=== PATIENT | male | born 1955 | race Hispanic/Latino ===

== ENCOUNTER 2017-11-14 13:48 | Inpatient (IN) | payer OTHER ==
[2017-11-14 13:59] VITALS: BMI 23.7
[2017-11-14] MEDS ORDERED: Sodium Chloride 0.9% 1,000 ML IV ONE (14:35)
[2017-11-14] MEDS ORDERED: Sodium Chloride 0.9% 1,000 ML ONE (14:45)
[2017-11-14 14:59] LABS: BASO % 0.4 % (0.0-2.0); EOS # 0.1 K/uL (0.0-0.7); EOS % 1.3 % (0.0-4.0); HEMOGLOBIN 13.7 g/dL (12.0-18.0); LYMPH # 0.7 K/uL (1.0-4.3); LYMPH % 9.9 % (20.0-40.0); MEAN CELL VOLUME 89.8 fL (80.0-94.0); MEAN CORPUSCULAR HGB CONC 34.5 g/dL (33.0-37.0); MEAN PLATELET VOLUME 7.9 fL (7.2-11.7); MONO # 0.4 K/uL (0.0-0.8); NEUT # 5.6 K/uL (1.8-7.0); NEUT % 82.4 % (50.0-75.0); PLATELET COUNT 279 K/uL (130-400); RBC 4.42 Mil/uL (4.40-5.90); RED CELL DISTRIBUTION WIDTH 14.2 % (11.5-14.5); WHITE BLOOD COUNT 6.7 K/uL (4.8-10.8)
[2017-11-14 15:10] LABS: INR 0.9; PROTHROMBIN TIME 10.5 SECONDS (9.7-12.2)
[2017-11-14 15:37] LABS: ALB/GLOB RATIO 1.1 (1.0-2.1); ALBUMIN 3.9 g/dL (3.5-5.0)
[2017-11-14 15:39] LABS: ALT/SGPT 33 U/L (21-72); AST/SGOT 28 U/L (17-59); BLOOD UREA NITROGEN 20 mg/dL (9-20); CALCIUM 9.2 mg/dl (8.6-10.4); GFR AFRICAN-AMERICAN > 60; GFR NON-AFRICAN AMERICAN > 60; LIPASE 26 U/L (23-300)
[2017-11-14 15:45] LABS: EOSINOPHIL 1 % (0-4); LYMPHOCYTE 11 % (20-40); MONOCYTE 8 % (0-10); NEUTROPHIL 80 % (50-75); PLATELET ESTIMATE NORMAL (NORMAL); TOTAL CELLS COUNTED 100
--- NOTE | 2017-11-14 15:57 | C.PDOC ---
History Of Present Illness Pt states that he had a headache this morning so he took Aspirin for it. He then started vomiting coffee grounds. Time Seen by Provider: 11/14/17 14:26 Chief Complaint (Nursing): GI Problem History Per: Patient Onset/Duration Of Symptoms: Sudden Onset (this afternoon) Current Symptoms Are (Timing): Still Present Number Of Bleeding Episodes: Multiple: (4) Amount of Blood Loss: Medium Severity: Moderate Quality Of Discomfort: Unable To Describe Associated Symptoms: Vomiting, Coffee Ground material Modifying Factors: Other Indicated Below Currently Taking: Aspirin Additional History Per: Prior Records Past Medical History Reviewed: Historical Data, Nursing Documentation, Vital Signs Vital Signs: Last Vital Signs Temp 98.2 F 11/14/17 13:59 Pulse 77 11/14/17 14:47 Resp 14 11/14/17 14:47 BP 146/77 11/14/17 14:47 Pulse Ox 97 11/14/17 15:57 - Medical History PMH: Diabetes, Gastritis, Hepatitis (C), HTN, Hypercholesterolemia Surgical History: No Surg Hx - [facility] Procedures DX ULTRASOUND-HEART (03/04/13) OTHER ESOPHAGOSCOPY (03/04/13) Family History: States: Unknown Family Hx - Social History Hx Tobacco Use: Yes Hx Alcohol Use: No Hx Substance Use: Yes (heroin on methadone) - Immunization History Hx Tetanus Toxoid Vaccination: No Hx Influenza Vaccination: No Hx Pneumococcal Vaccination: No Review Of Systems Except As Marked, All Systems Reviewed And Found Negative. Constitutional: Negative for: Fever Respiratory: Negative for: Shortness of Breath Gastrointestinal: Negative for: Abdominal Pain, Melena Skin: Negative for: Rash Neurological: Negative for: Weakness, Numbness Physical Exam - Physical Exam Appears: No Acute Distress Skin: Normal Color, Warm, Dry, Rash (Psoriasis) Head: Atraumatic Eye(s): bilateral: PERRL, EOMI Neck: Normal ROM, Supple Cardiovascular: Rhythm Regular Respiratory: Normal Breath Sounds, No Accessory Muscle Use Gastrointestinal/Abdominal: Soft, No Tenderness Rectal: Heme Negative, Other (No stool in rectal vault, no blood either.) Extremity: Normal ROM Neurological/Psych: Oriented x3, Normal Motor, Normal Sensation ED Course And Treatment - Laboratory Results Result Diagrams: 11/14/17 14:43 11/14/17 14:43 O2 Sat by Pulse Oximetry: 97 Pulse Ox Interpretation: Normal Progress Note: Pt also vomited coffee ground material in the ED. Progress - Interventions Interventions:: Observation, Intravenous fluid - Medications Administered Intravenous: Antiemetic, Other (PPI) - Data Reviewed Data Reviewed: Lab, Old records - Continuity of Care Discussed patient case with:: Patient, ED Nurse, On-call PMD-pt unassigned - Patient Plan Patient Plan: Admission Disposition Counseled Patient/Family Regarding: Studies Performed, Diagnosis - Disposition Disposition: HOSPITALIZED Disposition Time: 15:58 Condition: FAIR - Clinical Impression Clinical Impression: Upper GI bleeding
[2017-11-14] MEDS ORDERED: Glucagon Recombinant 1 mg Inj IM PRN (21:14)
[2017-11-14] MEDS ORDERED: Dextrose 50% SYRINGE Inj (50 ml) IV PRN (21:14)
[2017-11-14] MEDS ORDERED: Dextrose 50% SYRINGE Inj (50 ml) ONE (21:21)
[2017-11-14] MEDS: (Novolin R) Insulin Human Regular 100 units/ml vial SC SCH (22:20)
[2017-11-14] MEDS: Dextrose 5%/0.45% NS 1,000 ML IV SCH (22:21)
[2017-11-14 23:34] LABS: MEAN CELL VOLUME 90.3 fL (80.0-94.0); MEAN CORPUSCULAR HEMOGLOBIN 31.3 pg (27.0-31.0); MEAN CORPUSCULAR HGB CONC 34.6 g/dL (33.0-37.0); MEAN PLATELET VOLUME 7.7 fL (7.2-11.7); RBC 3.85 Mil/uL (4.40-5.90); RED CELL DISTRIBUTION WIDTH 14.2 % (11.5-14.5); WHITE BLOOD COUNT 5.7 K/uL (4.8-10.8)
[2017-11-15] MEDS: Dextrose 5%/0.45% NS 1,000 ML IV SCH ×2 (06:25→14:55)
[2017-11-15] MEDS: (Novolin R) Insulin Human Regular 100 units/ml vial SC SCH ×2 (07:34→11:30)
[2017-11-15 08:05] LABS: HEMOGLOBIN 13.1 g/dL (12.0-18.0); MEAN CELL VOLUME 90.4 fL (80.0-94.0); MEAN CORPUSCULAR HGB CONC 34.3 g/dL (33.0-37.0); MEAN PLATELET VOLUME 7.9 fL (7.2-11.7); RBC 4.24 Mil/uL (4.40-5.90); RED CELL DISTRIBUTION WIDTH 14.4 % (11.5-14.5); WHITE BLOOD COUNT 5.3 K/uL (4.8-10.8)
[2017-11-15] MEDS ORDERED: Lactated Ringer's 1,000 ML IV ONE (09:05)
[2017-11-15] MEDS ORDERED: Propofol 10 mg/ml Inj (20 ML) ONE (09:14)
[2017-11-15] MEDS ORDERED: Methadone 40 mg Tab PO SCH (10:00)
--- NOTE | 2017-11-15 12:30 | CP.PCM.HP ---
History of Present Illness - History of Present Illness History of Present Illness: Pt states that he had a headache this morning so he took Aspirin for it. He then started vomiting coffee grounds. Present on Admission - Present on Admission Any Indicators Present on Admission: Yes Review of Systems - Review of Systems Systems not reviewed;Unavailable: Acuity of Condition - Constitutional Constitutional: Malaise, Weakness - EENT Eyes: absent: As Per HPI, Blind Spots, Blurred Vision, Change in Vision, Decreased Night Vision, Diplopia, Discharge, Dry Eye, Exophthalmos, Floaters, Irritation, Itchy Eyes, Loss of Peripheral Vision, Pain, Photophobia, Requires Corrective Lenses, Sees Flashes, Spots in Vision, Tunnel Vision, Other Visual Disturbances, Loss of Vision, Other Nose/Mouth/Throat: absent: As Per HPI, Epistaxis, Nasal Congestion, Nasal Discharge, Nasal Obstruction, Nasal Trauma, Nose Pain, Post Nasal Drip, Sinus Pain, Sinus Pressure, Bleeding Gums, Change in Voice, Dental Pain, Dry Mouth, Dysphagia, Halitosis, Hoarsness, Lip Swelling, Mouth Lesions, Mouth Pain, Odynophagia, Sore Throat, Throat Swelling, Tongue Swelling, Facial Pain, Neck Pain, Neck Mass, Other - Cardiovascular Cardiovascular: absent: As Per HPI, Acrocyanosis, Chest Pain, Chest Pain at Rest , Chest Pain with Activity, Claudication, Diaphoresis, Dyspnea, Dyspnea on Exertion, Edema, Irregular Heart Rhythm, Pain Radiating to Arm/Neck/Jaw, Leg Edema, Leg Ulcers, Lightheadedness, Orthopnea, Palpitations, Paroxysmal Nocturnal Dyspnea, Pedal Edema, Radiating Pain, Rapid Heart Rate, Slow Heart Rate, Syncope, Other - Gastrointestinal Gastrointestinal: Abdominal Pain - Genitourinary Genitourinary: absent: As Per HPI, Change in Urinary Stream, Difficulty Urinating, Dysuria, Flank Pain, Hematuria, Pyuria, Nocturia, Urinary Incontinence, Urinary Frequency, Urinary Hesitance, Urinary Urgency, Voiding Freq/Small Amts, Freq UTI, Hx Renal/Bladder Calculi, Hx /Renal Surgery, Bladder Distension, Other Past Patient History - Past Medical History & Family History Past Medical History?: Yes - Past Social History Smoking Status: Heavy Smoker > 10 Cigarettes Daily - CARDIAC Hx Cardiac Disorders: Yes Hx Hypercholesterolemia: Yes Hx Hypertension: Yes - PULMONARY Hx Respiratory Disorders: No - NEUROLOGICAL Hx Neurological Disorder: No - HEENT Hx HEENT Problems: No - RENAL Hx Chronic Kidney Disease: No - ENDOCRINE/METABOLIC Hx Endocrine Disorders: Yes Hx Diabetes Mellitus Type 2: Yes - HEMATOLOGICAL/ONCOLOGICAL Hx Blood Disorders: No - INTEGUMENTARY Hx Dermatological Problems: Yes Hx Psoriasis: Yes - MUSCULOSKELETAL/RHEUMATOLOGICAL Hx Musculoskeletal Disorders: No Hx Falls: No - GASTROINTESTINAL Hx Gastrointestinal Disorders: Yes Hx Gastritis: Yes - GENITOURINARY/GYNECOLOGICAL Hx Genitourinary Disorders: No - PSYCHIATRIC Hx Psychophysiologic Disorder: Yes Hx Substance Use: Yes (heroin/methadone) - SURGICAL HISTORY Hx Surgeries: No - ANESTHESIA Hx Anesthesia: No Hx Anesthesia Reactions: No Hx Malignant Hyperthermia: No Meds Home Medications: Home Medication List Medication Instructions Recorded Confirmed Type Omeprazole 40 mg PO DAILY #30 capsule. 11/15/17 Rx Allergies/Adverse Reactions: Allergies Allergy/AdvReac Type Severity Reaction Status Date / Time No Known Allergies Allergy Verified 11/14/17 13:58 Physical Exam - Constitutional Appears: Toxic, No Acute Distress - Head Exam Head Exam: ATRAUMATIC, NORMAL INSPECTION, NORMOCEPHALIC - Eye Exam Eye Exam: EOMI, Normal appearance, PERRL Pupil Exam: NORMAL ACCOMODATION, PERRL - Neck Exam Neck exam: Positive for: Normal Inspection - Respiratory Exam Respiratory Exam: Clear to Auscultation Bilateral, NORMAL BREATHING PATTERN - Cardiovascular Exam Cardiovascular Exam: REGULAR RHYTHM - GI/Abdominal Exam GI & Abdominal Exam: Normal Bowel Sounds, Tenderness - Neurological Exam Neurological exam: Alert, CN II-XII Intact, Normal Gait, Oriented x3, Reflexes Normal - Psychiatric Exam Psychiatric exam: Anxious - Skin Skin Exam: Dry, Intact, Normal Color, Warm Results - Vital Signs Recent Vital Signs: Last Vital Signs Temp 97.6 F 11/15/17 09:25 Pulse 70 11/15/17 11:11 Resp 12 11/15/17 09:55 BP 136/78 11/15/17 11:11 Pulse Ox 99 11/15/17 09:55 - Labs Result Diagrams: 11/15/17 07:59 11/14/17 14:43 Labs: Laboratory Results - last 24 hr 11/14/17 11/14/17 11/14/17 14:43 14:43 14:43 WBC 6.7 RBC 4.42 Hgb 13.7 Hct 39.7 MCV 89.8 MCH 31.0 MCHC 34.5 RDW 14.2 Plt Count 279 MPV 7.9 Neut % (Auto) 82.4 H Lymph % (Auto) 9.9 L [place] % (Auto) 6.0 Eos % (Auto) 1.3 Baso % (Auto) 0.4 Neut # (Auto) 5.6 Lymph # (Auto) 0.7 L [place] # (Auto) 0.4 Eos # (Auto) 0.1 Baso # (Auto) 0.0 Neutrophils % (Manual) 80 H Lymphocytes % (Manual) 11 L Monocytes % (Manual) 8 Eosinophils % (Manual) 1 Platelet Estimate Normal PT 10.5 INR 0.9 APTT 38 H Sodium 141 Potassium 4.0 Chloride 98 Carbon Dioxide 29 Anion Gap 18 BUN 20 Creatinine 0.9 Est GFR ( Amer) > 60 Est GFR (Non-Af Amer) > 60 POC Glucose (mg/dL) Random Glucose 142 H Calcium 9.2 Total Bilirubin 0.7 AST 28 ALT 33 Alkaline Phosphatase 70 Total Protein 7.5 Albumin 3.9 Globulin 3.5 Albumin/Globulin Ratio 1.1 Lipase 26 Stool Occult Blood Blood Type Antibody Screen Antibody Identification Antigen Identification 11/14/17 11/14/17 11/14/17 14:43 15:14 21:10 WBC RBC Hgb Hct MCV MCH MCHC RDW Plt Count MPV Neut % (Auto) Lymph % (Auto) [place] % (Auto) Eos % (Auto) Baso % (Auto) Neut # (Auto) Lymph # (Auto) [place] # (Auto) Eos # (Auto) Baso # (Auto) Neutrophils % (Manual) Lymphocytes % (Manual) Monocytes % (Manual) Eosinophils % (Manual) Platelet Estimate PT INR APTT Sodium Potassium Chloride Carbon Dioxide Anion Gap BUN Creatinine Est GFR ( Amer) Est GFR (Non-Af Amer) POC Glucose (mg/dL) 68 Random Glucose Calcium Total Bilirubin AST ALT Alkaline Phosphatase Total Protein Albumin Globulin Albumin/Globulin Ratio Lipase Stool Occult Blood Negative Blood Type A POSITIVE Antibody Screen Positive Antibody Identification Anti E Antigen Identification E Antigen - NEGATIVE 11/14/17 11/14/17 11/14/17 21:12 21:48 23:31 WBC 5.7 RBC 3.85 L Hgb 12.0 Hct 34.7 L MCV 90.3 MCH 31.3 H MCHC 34.6 RDW 14.2 Plt Count 236 MPV 7.7 Neut % (Auto) Lymph % (Auto) [place] % (Auto) Eos % (Auto) Baso % (Auto) Neut # (Auto) Lymph # (Auto) [place] # (Auto) Eos # (Auto) Baso # (Auto) Neutrophils % (Manual) Lymphocytes % (Manual) Monocytes % (Manual) Eosinophils % (Manual) Platelet Estimate PT INR APTT Sodium Potassium Chloride Carbon Dioxide Anion Gap BUN Creatinine Est GFR ( Amer) Est GFR (Non-Af Amer) POC Glucose (mg/dL) 69 128 H Random Glucose Calcium Total Bilirubin AST ALT Alkaline Phosphatase Total Protein Albumin Globulin Albumin/Globulin Ratio Lipase Stool Occult Blood Blood Type Antibody Screen Antibody Identification Antigen Identification 11/15/17 11/15/17 11/15/17 02:20 05:42 07:28 WBC RBC Hgb Hct MCV MCH MCHC RDW Plt Count MPV Neut % (Auto) Lymph % (Auto) [place] % (Auto) Eos % (Auto) Baso % (Auto) Neut # (Auto) Lymph # (Auto) [place] # (Auto) Eos # (Auto) Baso # (Auto) Neutrophils % (Manual) Lymphocytes % (Manual) Monocytes % (Manual) Eosinophils % (Manual) Platelet Estimate PT INR APTT Sodium Potassium Chloride Carbon Dioxide Anion Gap BUN Creatinine Est GFR ( Amer) Est GFR (Non-Af Amer) POC Glucose (mg/dL) 92 120 H 113 H Random Glucose Calcium Total Bilirubin AST ALT Alkaline Phosphatase Total Protein Albumin Globulin Albumin/Globulin Ratio Lipase Stool Occult Blood Blood Type Antibody Screen Antibody Identification Antigen Identification 11/15/17 11/15/17 07:59 11:07 WBC 5.3 RBC 4.24 L Hgb 13.1 Hct 38.3 MCV 90.4 MCH 31.0 MCHC 34.3 RDW 14.4 Plt Count 253 MPV 7.9 Neut % (Auto) Lymph % (Auto) [place] % (Auto) Eos % (Auto) Baso % (Auto) Neut # (Auto) Lymph # (Auto) [place] # (Auto) Eos # (Auto) Baso # (Auto) Neutrophils % (Manual) Lymphocytes % (Manual) Monocytes % (Manual) Eosinophils % (Manual) Platelet Estimate PT INR APTT Sodium Potassium Chloride Carbon Dioxide Anion Gap BUN Creatinine Est GFR ( Amer) Est GFR (Non-Af Amer) POC Glucose (mg/dL) 95 Random Glucose Calcium Total Bilirubin AST ALT Alkaline Phosphatase Total Protein Albumin Globulin Albumin/Globulin Ratio Lipase Stool Occult Blood Blood Type Antibody Screen Antibody Identification Antigen Identification Assessment & Plan (1) Abdominal pain Status: Acute (2) Gastritis Status: Acute (3) Drug abuse Status: Acute (4) Upper GI bleeding Status: Acute
[2017-11-15 15:49] VITALS: BP 130/70; PULSE 51; RESP 20; TEMP 98.1; O2SAT 97
--- NOTE | 2017-11-15 16:46 | CP.PCM.PN ---
Subjective - Date & Time of Evaluation Date of Evaluation: 11/15/17 Time of Evaluation: 16:46 - Subjective Subjective: Alert, oriented, denies abdominal pain or vomiting. Objective - Vital Signs/Intake and Output Vital Signs (last 24 hours): Temp Pulse Resp BP Pulse Ox 98.1 F 51 L 20 130/70 97 11/15/17 15:48 11/15/17 15:48 11/15/17 15:48 11/15/17 15:48 11/15/17 15:48 Intake and Output: 11/15/17 11/15/17 06:59 18:59 Intake Total 940 880 Output Total 600 Balance 340 880 - Medications Medications: Current Medications Dextrose (Dextrose 50% Inj) 0 ml IV STAT PRN; Protocol PRN Reason: Hypoglycemia Protocol Last Admin: 11/14/17 21:20 Dose: 50 ml Dextrose (Glutose 15) 0 gm PO ONCE PRN; Protocol PRN Reason: Hypoglycemia Protocol Glucagon (Glucagen Diagnostic Kit) 0 mg IM STAT PRN; Protocol PRN Reason: Hypoglycemia Protocol Dextrose (Dextrose 5% In Water 1000 Ml) 1,000 mls @ 0 mls/hr IV .Q0M PRN; Protocol; Per Protocol PRN Reason: Hypoglycemia Protocol Last Admin: 11/14/17 21:20 Dose: 100 mls/hr Dextrose/Sodium Chloride (Dextrose 5%/0.45% Ns 1000 Ml) 1,000 mls @ 80 mls/hr IV .[id number] [facility] Last Admin: 11/15/17 14:55 Dose: Not Given Insulin Human Regular (Novolin R) 0 unit SC ACHS [facility] PRN Reason: Protocol Last Admin: 11/15/17 11:30 Dose: Not Given Lisinopril (Zestril) 2.5 mg PO DAILY [facility] Last Admin: 11/15/17 11:12 Dose: 2.5 mg Metformin HCl (Glucophage) 500 mg PO BIDCC [facility] Last Admin: 11/15/17 07:34 Dose: Not Given Methadone HCl (Methadose) 80 mg PO DAILY [facility] Last Admin: 11/15/17 11:12 Dose: 80 mg Methadone HCl (Methadone) 10 mg PO DAILY [facility] Last Admin: 11/15/17 11:13 Dose: 10 mg Ondansetron HCl (Zofran Inj) 8 mg IVP Q8H [facility] Last Admin: 11/15/17 11:12 Dose: Not Given Pantoprazole Sodium (Protonix Inj) 40 mg IVP DAILY [facility] Last Admin: 11/15/17 11:38 Dose: 40 mg Rosuvastatin Calcium (Crestor) 5 mg PO HS [facility] Last Admin: 11/14/17 22:23 Dose: 5 mg - Labs Labs: 11/15/17 07:59 11/14/17 14:43 PT 10.5 SECONDS (9.7-12.2) 11/14/17 14:43 INR 0.9 11/14/17 14:43 APTT 38 SECONDS (21-34) H 11/14/17 14:43 Assessment and Plan - Assessment and Plan (Free Text) Assessment: 62 year old male admitted with abdominal pain, vomiting, seen and examined. Alert and orientedx3, had endoscopy done today, diagnosed with esophagitis and non bleeding gastric ulcer. Tolerating liquid diet. Discussed with DR iDaz and DR Davenport, plan to discharge home on prilosec 40mg daily x2 months. Advised to avoid alcohol, citric and spicy foods. Advised to follow up with PMD in 1 week.
--- NOTE | 2017-11-16 05:45 | CON ---
DATE: 11/14/2017 That is from Edwige Hair MD, to Luis Davenport MD. I was called for GI consultation by the admitting medical team as well as the ER staff. The patient is seen and fully examined on 11/14/2017 as requested by the admitted medical team. The entire chart is reviewed including but not limited to most recent lab and radiology study results, current and the previous medication list, current and the previous medical events, allergy to medication list as well as all the available current and the previous medical record. Case discussed at length with the staff. HISTORY OF PRESENT ILLNESS: This is 62-year-old male who was admitted to the hospital due to recurrent episode of nausea and vomiting, off aspirin intake due to severe headache, generalized weakness, malaise, dyspepsia, again with nausea and vomiting of some coffee-ground material with postprandial abdominal distention. No reported palpitation, significant shortness of breath, chills, or fever. PAST MEDICAL HISTORY: Including but not limited to, 1. Peptic ulcer disease. 2. Known history of hepatitis C viral infection with liver cirrhosis. 3. Hyperlipidemia with hypertension. 4. Diabetes mellitus with diabetic gastroparesis. FAMILY HISTORY: Noncontributory. SOCIAL HISTORY: Positive for cigarette smoking, but previous alcohol intake. CURRENT MEDICATION: Medication list post admission was reviewed. ALLERGIES TO MEDICATIONS: UNCLEAR. LABORATORY DATA: Initial blood workup post admission showed normal CBC. Blood glucose level of 122. PHYSICAL EXAMINATION: GENERAL: A 62-year-old male appear to be awake, alert, oriented, and complaining of abdominal pain with nausea and dyspepsia. VITAL SIGNS: Afebrile with pulse of 82, respiratory rate 16 to 18, blood pressure 140/74. HEENT: Showed pale, dry oral mucous membranes mildly; nonicteric sclerae. LYMPH NODES: No lymphadenitis or lymphadenopathy. LUNGS: Few scattered mild crepitations. Breathing sounds are present bilaterally. HEART: Positive S1 and S2. ABDOMEN: Soft with generalized tenderness with mild distension. No mass or organomegaly. No rebound tenderness or guarding. EXTREMITIES: No significant clubbing, cyanosis, or edema. NEUROLOGIC: No reported new neurological deficits, sensory or motor. No reported focal deficits newly. Peripheral pulse are present bilaterally. IMPRESSION: 1. Exacerbation of peptic ulcer disease. 2. Upper gastrointestinal bleeding. 3. Past medical history including mainly but not limited to hypertension, diabetes mellitus, diabetes gastroparesis, hepatitis C viral infection as well as hyperlipemia. 4. Rule out gastric versus duodenal ulcer verus Ce-García tear. SUGGESTIONS: 1. Agree with your plan. 2. Recommend IV. 3. Proton pump inhibitors IV. 4. Keep n.p.o. for now. 5. Serum lipase and amylase level. 6. Abdominal ultrasound. Endoscopic evaluation of the GI tract when the patient is more stable clinically. The patient will be placed also on one tablet three times a day. Further recommendations to follow. Thank your for letting me participate in your patient's case management. Edwige Hair MD
--- NOTE | 2017-11-16 08:42 | CP.PCM.DIS ---
Provider - Provider Date of Admission: 11/14/17 16:00 Attending physician: Luis Davenport MD Time Spent in preparation of Discharge (in minutes): 45 Hospital Course - Lab Results Lab Results: Most Recent Lab Values WBC 5.3 K/uL (4.8-10.8) 11/15/17 07:59 RBC 4.24 Mil/uL (4.40-5.90) L 11/15/17 07:59 Hgb 13.1 g/dL (12.0-18.0) 11/15/17 07:59 Hct 38.3 % (35.0-51.0) 11/15/17 07:59 MCV 90.4 fL (80.0-94.0) 11/15/17 07:59 MCH 31.0 pg (27.0-31.0) 11/15/17 07:59 MCHC 34.3 g/dL (33.0-37.0) 11/15/17 07:59 RDW 14.4 % (11.5-14.5) 11/15/17 07:59 Plt Count 253 K/uL (130-400) 11/15/17 07:59 MPV 7.9 fL (7.2-11.7) 11/15/17 07:59 Neut % (Auto) 82.4 % (50.0-75.0) H 11/14/17 14:43 Lymph % (Auto) 9.9 % (20.0-40.0) L 11/14/17 14:43 [place] % (Auto) 6.0 % (0.0-10.0) 11/14/17 14:43 Eos % (Auto) 1.3 % (0.0-4.0) 11/14/17 14:43 Baso % (Auto) 0.4 % (0.0-2.0) 11/14/17 14:43 Neut # (Auto) 5.6 K/uL (1.8-7.0) 11/14/17 14:43 Lymph # (Auto) 0.7 K/uL (1.0-4.3) L 11/14/17 14:43 [place] # (Auto) 0.4 K/uL (0.0-0.8) 11/14/17 14:43 Eos # (Auto) 0.1 K/uL (0.0-0.7) 11/14/17 14:43 Baso # (Auto) 0.0 K/uL (0.0-0.2) 11/14/17 14:43 Neutrophils % (Manual) 80 % (50-75) H 11/14/17 14:43 Lymphocytes % (Manual) 11 % (20-40) L 11/14/17 14:43 Monocytes % (Manual) 8 % (0-10) 11/14/17 14:43 Eosinophils % (Manual) 1 % (0-4) 11/14/17 14:43 Platelet Estimate Normal (NORMAL) 11/14/17 14:43 PT 10.5 SECONDS (9.7-12.2) 11/14/17 14:43 INR 0.9 11/14/17 14:43 APTT 38 SECONDS (21-34) H 11/14/17 14:43 Sodium 141 mmol/L (132-148) 11/14/17 14:43 Potassium 4.0 mmol/L (3.6-5.2) 11/14/17 14:43 Chloride 98 mmol/L (98-107) 11/14/17 14:43 Carbon Dioxide 29 mmol/L (22-30) 11/14/17 14:43 Anion Gap 18 (10-20) 11/14/17 14:43 BUN 20 mg/dL (9-20) 11/14/17 14:43 Creatinine 0.9 mg/dL (0.8-1.5) 11/14/17 14:43 Est GFR ( Amer) > 60 11/14/17 14:43 Est GFR (Non-Af Amer) > 60 11/14/17 14:43 POC Glucose (mg/dL) 95 mg/dL (65-110) 11/15/17 11:07 Random Glucose 142 mg/dL (75-110) H 11/14/17 14:43 Calcium 9.2 mg/dl (8.6-10.4) 11/14/17 14:43 Total Bilirubin 0.7 mg/dL (0.2-1.3) 11/14/17 14:43 AST 28 U/L (17-59) 11/14/17 14:43 ALT 33 U/L (21-72) 11/14/17 14:43 Alkaline Phosphatase 70 U/L (38-126) 11/14/17 14:43 Total Protein 7.5 g/dL (6.3-8.3) 11/14/17 14:43 Albumin 3.9 g/dL (3.5-5.0) 11/14/17 14:43 Globulin 3.5 gm/dL (2.2-3.9) 11/14/17 14:43 Albumin/Globulin Ratio 1.1 (1.0-2.1) 11/14/17 14:43 Lipase 26 U/L (23-300) 11/14/17 14:43 Carcinoembryonic Ag 2.2 ng/mL (0-3.0) 11/15/17 11:27 CA 19-9 Antigen < 1.4 U/mL (0-37) 11/15/17 11:27 Stool Occult Blood Negative (NEGATIVE) 11/14/17 15:14 Blood Type A POSITIVE 11/14/17 14:43 Antibody Screen Positive 11/14/17 14:43 Antibody Identification Anti E 11/14/17 14:43 Antigen Identification E Antigen - NEGATIVE 11/14/17 14:43 - Hospital Course Hospital Course: 62 year old male admitted with abdominal pain, vomiting, seen and examined. Alert and orientedx3, had endoscopy done today, diagnosed with esophagitis and non bleeding gastric ulcer. Tolerating liquid diet. Discussed with DR Diaz =, plan to discharge home on prilosec 40mg daily x2 months. Advised to avoid alcohol, citric and spicy foods. Advised to follow up with PMD in 1 week. Discharge Exam - Head Exam Head Exam: ATRAUMATIC, NORMAL INSPECTION, NORMOCEPHALIC - Eye Exam Eye Exam: EOMI, Normal appearance, PERRL Pupil Exam: NORMAL ACCOMODATION, PERRL - ENT Exam ENT Exam: Mucous Membranes Moist - Cardiovascular Exam Cardiovascular Exam: REGULAR RHYTHM, +S1, +S2 - GI/Abdominal Exam GI & Abdominal Exam: Normal Bowel Sounds - Rectal Exam Rectal Exam: Deferred Discharge Plan - Discharge Medications Prescriptions: Omeprazole 40 mg PO DAILY #30 capsule.dr - Follow Up Plan Condition: FAIR Disposition: HOME/ ROUTINE Instructions: Gastrointestinal Bleeding (DC), Omeprazole Additional Instructions: avoid spicy food and alcohol Referrals: Luis Davenport MD [Staff Provider] -
== END 2017-11-15 17:41 | disposition home or self-care (01) | DRG 174 ==
LOC: C.ER 13:48 → C.9E 16:00 → C.3T 16:00
PROVIDERS: ADMIT Internal Medicine; ATTEND Internal Medicine
PROC: 0DB68ZX Excision of Stomach, Via Natural or Artificial Opening Endoscopic, Diagnostic (ICD-10-PCS; principal; 2017-11-15 09:05)
DX: K92.0 Hematemesis (principal); E11.43 Type 2 diabetes mellitus with diabetic autonomic (poly)neuropathy; K74.60 Unspecified cirrhosis of liver; B19.20 Unspecified viral hepatitis C without hepatic coma; F11.20 Opioid dependence, uncomplicated; K25.9 Gastric ulcer, unspecified as acute or chronic, without hemorrhage or perforation; K21.0 Gastro-esophageal reflux disease with esophagitis; K44.9 Diaphragmatic hernia without obstruction or gangrene; K29.70 Gastritis, unspecified, without bleeding; K31.84 Gastroparesis; E78.00 Pure hypercholesterolemia, unspecified; F17.210 Nicotine dependence, cigarettes, uncomplicated; I10 Essential (primary) hypertension; Z79.4 Long term (current) use of insulin

== ENCOUNTER 2018-09-25 10:28 | Outpatient (CLI) | payer OTHER | END 2018-09-25 10:29 | disposition home or self-care (01) | LOC: C.CTH 10:28 ==